=== PATIENT | male | born 1970 | race Caucasian/White ===

== ENCOUNTER 2023-11-26 11:36 | Inpatient (IN) ==
[2023-11-26 13:49] LABS: Urine Appearance Clear; Urine Bilirubin Negative (Negative); Urine Blood Negative (Negative); Urine Color Colorless; Urine Glucose Negative (Negative); Urine Ketones Negative (Negative); Urine Nitrite Negative (Negative); Urine Protein Negative (Negative); Urine Specific Gravity 1.005 (1.002-1.030); Urine Urobilinogen Negative (Negative)
[2023-11-26 14:19] LABS: ABS Eosinophils 0.1 10^3/uL (0.0-0.5); ABS Lymphocytes 1.6 10^3/uL (1.0-4.8); ABS Monocytes 0.6 10^3/uL (0.0-1.1); ABS Neutrophils 4.4 10^3/uL (1.5-7.6); ABS Nucleated RBC 0.01 10^3/ul; Eosinophil % 0.8 %; Hematocrit 41.3 % (38-53); Hemoglobin 14.5 g/dL (13.2-16.3); Lymphocyte % 24.3 %; Mean Corpuscular Hemoglobin 32.1 pg (27-33); Mean Corpuscular Volume 91.8 fL (80-97); Mean Platelet Volume 6.8 fL (7.5-11.2); Nucleated Red Blood Cells % 0.1 %/100WBC (0.0-0.8); Platelet Count 351 10^3/uL (150-450); Red Cell Distribution Width 13.4 % (12-17); White Blood Count 6.7 10^3/uL (3.6-10.2)
[2023-11-26 14:42] LABS: Urine Benzodiazepine Screen None Detected (None Detect); Urine Cannabinoids Screen None Detected (None Detect); Urine Opiates Screen None Detected (None Detect)
[2023-11-26 14:58] LABS: ALT 15 U/L (7-52); AST 19 U/L (13-39); Acetaminophen < 15 mcg/mL; Albumin 4.5 g/dL (3.2-5.2); Alcohol, S < 13 mg/dL (<13); Alkaline Phosphatase 54 U/L (35-149); Anion Gap 9 mmol/L (2-16); Blood Urea Nitrogen 13 mg/dL (6-24); CO2 Carbon Dioxide 26 mmol/L (22-32); Calcium 9.6 mg/dL (8.6-10.3); Chloride 104 mmol/L (101-111); Creatinine, Serum 0.66 mg/dL (0.67-1.17); Globulin 2.3 g/dL (2-4); Glucose 107 mg/dL (70-100); Potassium 3.8 mmol/L (3.5-5.0); Salicylate < 2.50 mg/dL (<30); Sodium 139 mmol/L (135-145); TSH Ultra Thyroid Stim Horm 0.97 mcIU/mL (0.34-5.60); Total Bilirubin 0.7 mg/dL (0.2-1.0); Total Protein 6.8 g/dL (6.4-8.9); eGFR CKD-EPI 110.8 (>60)
[2023-11-26] MEDS: OLANZapine 5 mg TAB *ODT PO PRN (21:57)
[2023-11-27 08:43] LABS: HDL Cholesterol 63.5 mg/dL
[2023-11-27] MEDS: Vitamin THERAPEUTIC TAB PO SCH (09:30)
[2023-11-28] MEDS: Al Hydrox/Mg Hydrox/Simet LIQ 30 ML UDC PO PRN (23:44)
[2023-11-30 10:42] VITALS: BP 150/101
== END 2023-11-30 13:01 | disposition home or self-care (01) | DRG 880 ==
LOC: ED 11:36 → EDHOLD 19:42 → BSU 20:06
PROVIDERS: ADMIT Psychiatry & Neurology Psychiatry; ATTEND Psychiatry & Neurology Psychiatry